=== PATIENT | male | born 1980 | race Caucasian/White ===

== ENCOUNTER 2021-03-11 11:53 | Emergency (ER) | payer SELFPAY ==
--- NOTE | 2021-03-11 16:30 | RAD REPORT ---
EXAM DESCRIPTION: RAD - Hand Left 3 View - 03/11/2021 4:07 pm CLINICAL HISTORY: swelling pain, possible infection COMPARISON: None. FINDINGS: No fracture, dislocation or periosteal reaction noted. No acute bone or joint finding. Sof t tissue swelling is present over the dorsum of the hand and wrist. No air or foreign body identifiab le. IMPRESSION: Soft tissue swelling left hand and wrist with no air or foreign body in the soft tissues .
[2021-03-11 16:38] LABS: Absolute Lymphocytes (CBC) 1.3 K/uL (0.7-4.9); Basophils % 0.3 % (0-1.3); Hematocrit 44.4 % (39.6-49.0); Lymphocytes % 12.1 % (15.3-44.8); MPV 7.3 fL (7.6-11.3); RBC Red Blood Cell Count 5.03 M/uL (4.33-5.43)
[2021-03-11 16:57] LABS: ALT/SGPT 18 U/L (12-78); AST/SGOT 8 U/L (15-37); Albumin 3.6 g/dL (3.4-5.0); Alkaline Phosphatase 95 U/L (45-117); BUN Blood Urea Nitrogen 12 mg/dL (7-18); Bicarbonate 29 mmol/L (21-32); Bilirubin Total 0.6 mg/dL (0.2-1.0); Glucose Level 93 mg/dL (74-106); Sodium Level 137 mmol/L (136-145)
[2021-03-11] MEDS ORDERED: LIDOCAINE 1% MPF 30 ML VIAL ONE (17:44)
[2021-03-11] MEDS ORDERED: VANCOMYCIN/NS 1 gm 1 GM/250 ML BAG IVPB ONE (18:00)
[2021-03-11] MEDS ORDERED: KETOROLAC 30 MG/ML INJ ONE (19:07)
--- NOTE | 2021-03-11 20:00 | ER ---
Nurse's Notes [facility] Name: Barrington Asencio Age: 40 yrs Sex: Male : 1980 Arrival Date: 03/11/2021 Time: 11:57 Bed 11 Private MD: Diagnosis: Cutaneous Abscess of the Left Hand Presentation: 03/11 12:14 Chief complaint: Patient states: Ant bites to L hand for 1 week. 2 abscess to L hand ll1 with surrounding redness and swelling. States he sweats at night. On Bactrim and clindamycin for 2 days. Not any better yet. Coronavirus screen: Client denies travel out of the [place] in the last 14 days. At this time, the client does not indicate any symptoms associated with coronavirus-19. Ebola Screen: Patient denies travel to an Ebola-affected area in the 21 days before illness onset. Initial Sepsis Screen: Does the patient meet any 2 criteria? HR > 90 bpm. No. Patient's initial sepsis screen is negative. Does the patient have a suspected source of infection? Yes: Skin breakdown/wound. Risk Assessment: Do you want to hurt yourself or someone else? Patient reports no desire to harm self or others. Onset of symptoms was March 05, 2021. 12:14 Method Of Arrival: Ambulatory ll1 12:14 Acuity: CELINE 3 ll1 Triage Assessment: 16:29 General: Appears in no apparent distress. Behavior is calm, cooperative, appropriate vg1 for age, quiet. Pain: Complains of pain in dorsal aspect of proximal phalanx of left middle finger and palmar aspect of proximal phalanx of left middle finger Pain radiates to left hand and left arm Pain currently is 8 out of 10 on a pain scale. at worst was 10 out of 10 on a pain scale. level that patient reports is acceptable is 3 out of 10 on a pain scale. Quality of pain is described as aching, sharp, throbbing, Alleviated by medications, rest, repositioning. EENT: No deficits noted. Neuro: No deficits noted. Cardiovascular: No deficits noted. Respiratory: No deficits noted. GI: No deficits noted. : No deficits noted. Derm: Abscess located on dorsal aspect of proximal phalanx of left middle finger is nickel sized, has purulent drainage, is hot to touch, is red, is raised. Historical: - Allergies: 12:16 No Known Allergies; ll1 - PMHx: 12:16 HIV positive; ll1 - PSHx: 12:16 I\T\D; ll1 - Immunization history:: Client reports having NOT received the Covid vaccine. Flu vaccine status is unknown. - Social history:: Smoking status: Patient reports the use of cigarette tobacco products, smokes one pack cigarettes per day. Reported history of juuling and/or vaping. Screenin:28 Abuse screen: Denies threats or abuse. Denies injuries from another. Nutritional vg1 screening: No deficits noted. Tuberculosis screening: No symptoms or risk factors identified. Fall Risk None identified. Assessment: 18:25 Reassessment: No changes from previously documented assessment. Patient and/or family ap3 updated on plan of care and expected duration. Pain level reassessed. Vital Signs: 12:14 BP 138 / 82; Pulse 100; Resp 17; Temp 98.3; Pulse Ox 100% ; Weight 81.19 kg; Height 6 ll1 ft. 0 in. (182.88 cm); Pain 8/10; 19:35 BP 125 / 74; Pulse 88; Resp 14; Temp 98.5(O); Pulse Ox 100% on R/A; Pain 2/10; bc5 12:14 Body Mass Index 24.28 (81.19 kg, 182.88 cm) ll1 ED Course: 11:57 Patient arrived in ED. mr 12:16 Triage completed. ll1 12:17 Arm band placed on. ll1 15:19 Grady Goodman PA is PHCP. [facility] 15:20 Alex Schwartz MD is Attending Physician. jmm 16:07 Hand Left 3 View XRAY In Process Unspecified. EDMS 16:13 Meagan Smallwood, NELL is Primary Nurse. ap3 16:15 Inserted saline lock: 20 gauge in right antecubital area, using aseptic technique. vg1 16:27 Blood Culture Adult (2) Sent. vg1 16:27 Lactate Sent. vg1 16:27 Procalcitonin Sent. vg1 16:27 Wound Culture Sent. vg1 16:27 CMP Sent. vg1 16:27 CBC with Diff Sent. vg1 16:28 Patient has correct armband on for positive identification. vg1 16:28 No provider procedures requiring assistance completed. vg1 19:29 Primary Nurse role handed off by Meagan Smallwood, RN mw2 19:47 Umu Lauren, RN is Primary Nurse. kg 20:15 IV discontinued, intact, bleeding controlled, No redness/swelling at site. sj1 20:16 Wound care: was cleaned with soap and water, dressed with 4X4s, Kerlix, Vaseline gauze. sj1 Administered Medications: 17:45 Drug: Lidocaine (1 %) 20 ml Volume: 20 ml; Route: Infiltration; kg 17:52 Drug: vancoMYCIN 1 grams Route: IVPB; Infused Over: 2 hrs; Site: right antecubital; ap3 20:15 Follow up: IV Status: Completed infusion; IV Intake: 250ml sj1 18:44 Drug: Ketorolac 30 mg Route: IVP; Site: right antecubital; ap3 19:49 Follow up: Response: No adverse reaction kg Intake: 20:15 IV: 250ml; Total: 250ml. sj1 Outcome: 19:59 Discharge ordered by . rufina 20:14 Discharged to home ambulatory. sj1 20:14 Condition: stable 20:14 Discharge instructions given to patient, Instructed on discharge instructions, follow up and referral plans. Demonstrated understanding of instructions, follow-up care, wound care. 20:17 Patient left the ED. sj1 Signatures: Dispatcher [employer] EDMS Grady Goodman PA PA jmm Michelle Carlisle mr Meagan Smallwood, RN RN ap3 Pravin Duffy mw2 Rina Mendoza RN RN vg1 Cricket Moon RN RN 1 Umu Lauren, NELL CAMEJO Nena Ortega, RN RN 5 Loni Diamond, RN RN sj1
--- NOTE | 2021-03-11 20:00 | EDPHYS ---
Physician Documentation [facility] Name: Barrington Asencio Age: 40 yrs Sex: Male : 1980 Arrival Date: 03/11/2021 Time: 11:57 Bed 11 Private MD: ED Physician Alex Schwartz HPI: 03/11 15:32 This 40 yrs old Male presents to ER via Ambulatory with complaints of jmm Abscess, Hand Swelling. 15:32 The patient presents with an abscess of the left hand. Onset: The symptoms/episode jmm began/occurred gradually, 2 day(s) ago. Possible cause(s): fire ant bite. Associated signs and symptoms: Pertinent positives: swelling. This is a 40-year-old male with a history of IV drug use, HIV positive that presents to the emergency department with complaints of left hand swelling that he states is secondary to ant bites. Patient is currently on his second day of oral antibiotics without relief. Patient states pain has increased. Denies fever or chills. Historical: - Allergies: 12:16 No Known Allergies; ll1 - PMHx: 12:16 HIV positive; ll1 - PSHx: 12:16 I\T\D; ll1 - Immunization history:: Client reports having NOT received the Covid vaccine. Flu vaccine status is unknown. - Social history:: Smoking status: Patient reports the use of cigarette tobacco products, smokes one pack cigarettes per day. Reported history of juuling and/or vaping. ROS: 15:32 Constitutional: Negative for fever, chills, and weight loss, Cardiovascular: Negative jmm for chest pain, palpitations, and edema, Respiratory: Negative for shortness of breath, cough, wheezing, and pleuritic chest pain. 15:32 Skin: Positive for swelling. 15:32 All other systems are negative. Exam: 15:32 Constitutional: This is a well developed, well nourished patient who is awake, alert, jmm and in no acute distress. Head/Face: atraumatic. Eyes: EOMI, no conjunctival erythema appreciated ENT: Moist Mucus Membranes Neck: Trachea midline, Supple Chest/axilla: Normal chest wall appearance and motion. Cardiovascular: Regular rate and rhythm. No edema appreciated Respiratory: Normal respirations, no respiratory distress appreciated Abdomen/GI: Non distended, soft Back: Normal ROM 15:32 Skin: 2 fluctuant abscesses noted to the dorsal surface of the left hand, the first is at the first MTP region, the second is at the third MTP region, purulent drainage is appreciated, area is tender to palpation, there is induration. 15:32 Neuro: Orientation: is normal, Mentation: is normal, Memory: is normal. 15:32 Psych: Behavior/mood is pleasant, cooperative. Vital Signs: 12:14 BP 138 / 82; Pulse 100; Resp 17; Temp 98.3; Pulse Ox 100% ; Weight 81.19 kg; Height 6 ll1 ft. 0 in. (182.88 cm); Pain 8/10; 19:35 BP 125 / 74; Pulse 88; Resp 14; Temp 98.5(O); Pulse Ox 100% on R/A; Pain 2/10; bc5 12:14 Body Mass Index 24.28 (81.19 kg, 182.88 cm) ll1 Procedures: 19:14 I \T\ D: Incision and drainage was performed for an abscess of the left left hand Prepped [facility] with Betadine, Anesthetized with 1 ml's 1% Lidocaine. Incised with #11 blade. Drained moderate amount purulent fluid. the patient tolerated the procedure well. MDM: 15:24 Patient medically screened. [facility] 19:14 Data reviewed: vital signs, nurses notes. [facility] 19:58 Counseling: I had a detailed discussion with the patient and/or guardian regarding: the [facility] historical points, exam findings, and any diagnostic results supporting the discharge/admit diagnosis, lab results, radiology results, the need for outpatient follow up, to return to the emergency department if symptoms worsen or persist or if there are any questions or concerns that arise at home. ED course: Purulent drainage appreciated on I\T\D. Patient is advised to follow-up with hand and otherwise given strict return precautions. Patient understood and agree with the care. I do not currently suspect flexor tenosynovitis. Patient is given strict return precautions due to risk factors of HIV and IV drug use.. 03/11 15:25 Order name: CBC with Diff; Complete Time: 16:[address] [facility] 03/11 15:25 Order name: CMP; Complete Time: 17:[address] [facility] 03/11 15:25 Order name: Procalcitonin; Complete Time: 17:[address] [facility] 03/11 15:25 Order name: Lactate; Complete Time: 17:[address] [facility] 03/11 15:25 Order name: Blood Culture Adult (2) [facility] 03/11 15:25 Order name: Saline Lock; Complete Time: 16:[address] [facility] 03/11 15:25 Order name: Hand Left 3 View XRAY; Complete Time: 16:[address] [facility] Administered Medications: 17:45 Drug: Lidocaine (1 %) 20 ml Volume: 20 ml; Route: Infiltration; kg 17:52 Drug: vancoMYCIN 1 grams Route: IVPB; Infused Over: 2 hrs; Site: right antecubital; ap3 20:15 Follow up: IV Status: Completed infusion; IV Intake: 250ml sj1 18:44 Drug: Ketorolac 30 mg Route: IVP; Site: right antecubital; ap3 19:49 Follow up: Response: No adverse reaction kg Disposition Summary: 03/11/21 19:59 Discharge Ordered Location: Home [facility] Condition: Stable [facility] Diagnosis - Cutaneous Abscess of the Left Hand [facility] Followup: [facility] - With: Private Physician - When: 1 - 2 days - Reason: Recheck today's complaints, Continuance of care, Re-evaluation by your physician Discharge Instructions: - Discharge Summary Sheet [facility] - Skin Abscess [facility] Forms: - Medication Reconciliation Form [facility] - Thank You Letter [facility] - Antibiotic Education [facility] - Prescription Opioid Use [facility] Addendum: 03/15/2021 19:04 Co-signature as Attending Physician, Alex Schwartz MD I agree with the assessment and r n plan of care. Attestation: The patient's history, exam findings, diagnostics, and a summary of any interventions or procedures was reviewed in detail with Grady NAIR. 19:05 PA/RESIDENCE HALL DIRECTOR's history reviewed, patient interviewed, and examined. HPI: 40 year old male with r n infection and swelling to hand. No trauma. No sub-q injections. HIV+. 19:05 PA/RESIDENCE HALL DIRECTOR's history reviewed, patient interviewed, and examined. My personal exam of r n patient reveals: + swelling with erythema and warmth to left dorsum hand, no streaking proximally, minimal fluctuance noted. I agree with assessment and care plan and confirm the diagnosis (es) above. Signatures: Dispatcher [employer] EDMS MickaGrady trejo PA PA jmm Nieto, Roman, MD MD rn Cl, Meagan RN RN ap3 Cricket Moon RN RN ll1 Umu Lauren RN RN kg Loni Diamond RN sj1
[2021-03-11 21:49] VITALS: O2SAT 100
[2021-03-11 21:50] VITALS: BP 125/74; TEMP 98.5
== END 2021-03-11 20:17 | disposition home or self-care (01) ==
LOC: ER 11:53
PROC: 0J9K0ZZ Drainage of Left Hand Subcutaneous Tissue and Fascia, Open Approach (ICD-10-PCS; principal; 2021-03-11)
DX: L02.512 Cutaneous abscess of left hand (principal); F17.210 Nicotine dependence, cigarettes, uncomplicated; Z21 Asymptomatic human immunodeficiency virus [HIV] infection status
CPT/HCPCS: 36415; 80053; 83605; 84145; 85025; 87040; 96365; 96366; 96375; 99284; J3370

== ENCOUNTER 2021-03-14 12:45 | Emergency (ER) | payer SELFPAY ==
--- NOTE | 2021-03-14 15:00 | EDPHYS ---
Physician Documentation [facility] Name: Barrington Asencio Age: 40 yrs Sex: Male : 1980 Arrival Date: 03/14/2021 Time: 12:47 Bed 11 Private MD: ED Physician Rasta Torres HPI: 03/14 15:28 This 40 yrs old Male presents to ER via Ambulatory with complaints of Abscess kb Recheck. 15:28 Patient presents to ED for recheck of: abscess. The affected area is on the Left first kb web space and dorsal aspect of proximal phalanx of left middle finger. Previous treatment: The patient was initially treated 3 day(s) ago, the care was rendered at [facility], Treatment type: The patient's original treatment included an I\T\D, Outpatient prescription(s): The patient was given prescription(s) for Bactrim, clindamycin. Progress: The patient reports no change in. The patient has not experienced similar symptoms in the past. The patient has been recently seen at the [facility] Emergency Department, this week, for similar complaints labs were performed. Pt was put on clindamycin and bactrim by [facility]. Came here 3 days ago and had I\T\D done to hand. Went for follow up with clinic today and told to come to the ER because he needed different antibiotics. . Historical: - Allergies: 13:20 No Known Allergies; ap3 - Home Meds: 13:20 clindamycin HCl 300 mg Oral cap 1 cap TID [Active]; Bactrim DS 800-160 mg Oral tab 1 ap3 tab twice a day [Active]; Ibuprofen Oral as needed for pain [Active]; Acetaminophen Oral as needed for pain [Active]; - PMHx: 13:20 HIV positive; ap3 - PSHx: 13:20 I\T\D; ap3 - Immunization history:: Adult Immunizations up to date, Client reports having NOT received the Covid vaccine. - Social history:: Smoking status: Patient reports the use of cigarette tobacco products, smokes one pack cigarettes per day. Patient/guardian denies using alcohol, stopped using illegal drugs three weeks ago . ROS: 15:27 Constitutional: Negative for fever, chills, and weight loss. kb 15:27 Skin: Positive for abscess, of the Left first web space and dorsal aspect of proximal phalanx of left middle finger. 15:27 All other systems are negative. Exam: 15:27 Constitutional: This is a well developed, well nourished patient who is awake, alert, kb and in no acute distress. Head/Face: Normocephalic, atraumatic. ENT: Moist Mucous membranes Respiratory: Respirations even and unlabored. No increased work of breathing, no retractions or nasal flaring. MS/ Extremity: Pulses equal, no cyanosis. Neurovascular intact. Full, normal range of motion. Neuro: Awake and alert, GCS 15, oriented to person, place, time, and situation. Moves all extremities. Normal gait. Psych: Awake, alert, with orientation to person, place and time. Behavior, mood, and affect are within normal limits. 15:27 Skin: Wound recheck: Abscess: the wound has not changed, continued discharge, continued erythema, continued pain, continued surrounding cellulitis, the packing is not in place. Vital Signs: 13:18 BP 127 / 86; Pulse 90; Resp 19; Temp 98.4; Pulse Ox 100% ; Weight 79.38 kg; Height 6 ap3 ft. (182.88 cm); Pain 0/10; 13:18 Body Mass Index 23.73 (79.38 kg, 182.88 cm) ap3 MDM: 13:27 Patient medically screened. kb 15:24 Data reviewed: vital signs, nurses notes. Data interpreted: Pulse oximetry: on room air kb is 100 %. Interpretation: normal. Counseling: I had a detailed discussion with the patient and/or guardian regarding: the historical points, exam findings, and any diagnostic results supporting the discharge/admit diagnosis, the need for outpatient follow up, a family practitioner, to return to the emergency department if symptoms worsen or persist or if there are any questions or concerns that arise at home. ED course: Received wound culture report from Tanesha modi. Sensitive to rifampin and vancomycin. Discussed options with pt. Pt will take rifampin and return for IV antibiotics if symptoms worsen. Administered Medications: No medications were administered Disposition Summary: 03/14/21 14:59 Discharge Ordered Location: Home kb Condition: Stable kb Diagnosis - Cutaneous abscess of left hand kb Followup: kb - With: Emergency Department - When: As needed - Reason: Worsening of condition Followup: kb - With: Private Physician - When: 2 - 3 days - Reason: Recheck today's complaints, Continuance of care, Re-evaluation by your physician Discharge Instructions: - Discharge Summary Sheet kb - Skin Abscess, [id number] kb - Incision and Drainage, Care After kb Forms: - Medication Reconciliation Form kb - Thank You Letter kb - Antibiotic Education kb - Prescription Opioid Use kb Prescriptions: - rifampin 300 mg Oral capsule - take 1 capsule by ORAL route every 8 hours for 7 days with water, 1 hour before kb or 2 hours after a meal; 21 capsule; Refills: 0, Product Selection Permitted Addendum: 03/15/2021 17:02 Co-signature as Attending Physician, Rasta Torres MD I agree with the assessment and k plan of care. Signatures: Chhaya Khan, REAL ESTATE INVESTOR-C REAL ESTATE INVESTOR-Ckb Rasta Torres MD MD [facility] Meagan Smallwood RN RN ap3
--- NOTE | 2021-03-14 15:00 | ER ---
Nurse's Notes [facility] Name: Barrington Asencio Age: 40 yrs Sex: Male : 1980 Arrival Date: 03/14/2021 Time: 12:47 Bed 11 Private MD: Diagnosis: Cutaneous abscess of left hand Presentation: 03/14 13:18 Chief complaint: Patient states: he was seen here Wednesday, and followed up with the ap3 clinic yesterday. The clinic informed the patient his abscess contains MRSA and needed to come here to get his antibiotics changed. Coronavirus screen: At this time, the client does not indicate any symptoms associated with coronavirus-19. Ebola Screen: No symptoms or risks identified at this time. Initial Sepsis Screen: Does the patient meet any 2 criteria? No. Patient's initial sepsis screen is negative. Does the patient have a suspected source of infection? Yes: Skin breakdown/wound. Risk Assessment: Do you want to hurt yourself or someone else? Patient reports no desire to harm self or others. Onset of symptoms was February 25, 2021. 13:18 Method Of Arrival: Ambulatory ap3 13:18 Acuity: CELINE 4 ap3 Triage Assessment: 13:23 General: Appears in no apparent distress. comfortable, Behavior is calm, cooperative, ap3 appropriate for age. Pain: Denies pain. Neuro: Level of Consciousness is awake, alert, obeys commands, Oriented to person, place, time, situation, Appropriate for age Moves all extremities. Gait is steady, Speech is normal. Cardiovascular: Capillary refill < 3 seconds Patient's skin is warm and dry. Respiratory: Airway is patent Respiratory effort is even, unlabored, Respiratory pattern is regular, symmetrical. Derm: Wound noted dorsal aspect of proximal phalanx of left middle finger and Left first web space. Historical: - Allergies: 13:20 No Known Allergies; ap3 - Home Meds: 13:20 clindamycin HCl 300 mg Oral cap 1 cap TID [Active]; Bactrim DS 800-160 mg Oral tab 1 ap3 tab twice a day [Active]; Ibuprofen Oral as needed for pain [Active]; Acetaminophen Oral as needed for pain [Active]; - PMHx: 13:20 HIV positive; ap3 - PSHx: 13:20 I\T\D; ap3 - Immunization history:: Adult Immunizations up to date, Client reports having NOT received the Covid vaccine. - Social history:: Smoking status: Patient reports the use of cigarette tobacco products, smokes one pack cigarettes per day. Patient/guardian denies using alcohol, stopped using illegal drugs three weeks ago . Screenin:23 Abuse screen: Denies threats or abuse. Nutritional screening: No deficits noted. ap3 Tuberculosis screening: No symptoms or risk factors identified. Fall Risk None identified. Assessment: 15:44 Reassessment: Patient appears in no apparent distress at this time. Patient and/or ss family updated on plan of care and expected duration. Pain level reassessed. Patient is alert, oriented x 3, equal unlabored respirations, skin warm/dry/pink. dressing placed to affected area. Pt discharged home with new antibiotic. Vital Signs: 13:18 BP 127 / 86; Pulse 90; Resp 19; Temp 98.4; Pulse Ox 100% ; Weight 79.38 kg; Height 6 ap3 ft. (182.88 cm); Pain 0/10; 13:18 Body Mass Index 23.73 (79.38 kg, 182.88 cm) ap3 ED Course: 12:47 Patient arrived in ED. mr 13:20 Triage completed. ap3 13:24 Patient has correct armband on for positive identification. Call light in reach. Pulse ap3 ox on. NIBP on. Door closed. Noise minimized. 13:25 Meagan Smallwood, NELL is Primary Nurse. ap3 13:25 Arm band placed on right wrist. ap3 13:26 Chhaya Khan FNP-C [facility]. kb 13:26 Rasta Torres MD is Attending Physician. kb 15:44 No provider procedures requiring assistance completed. Patient did not have IV access ss during this emergency room visit. Wound care: to cellulitis located on dorsal aspect of proximal phalanx of left middle finger was cleaned with soap and water, Patient tolerated well. Administered Medications: No medications were administered Outcome: 14:59 Discharge ordered by . kb 15:44 Discharged to home ambulatory. ss 15:44 Condition: good 15:44 Discharge instructions given to patient, Instructed on discharge instructions, follow up and referral plans. wound care, Demonstrated understanding of instructions, follow-up care, Prescriptions given X 1. 15:47 Patient left the ED. ss Signatures: Chhaya Khan JOSEPH-C PASSENGER CAR UPHOLSTERER APPRENTICE-Michelle Cole mr Louise Goodman, RN RN ss Meagan Smallwood RN RN ap3
[2021-03-14 16:47] VITALS: BP 127/86; TEMP 98.4; O2SAT 100
== END 2021-03-14 15:47 | disposition home or self-care (01) ==
LOC: ER 12:45
DX: L02.512 Cutaneous abscess of left hand (principal); F17.210 Nicotine dependence, cigarettes, uncomplicated; Z21 Asymptomatic human immunodeficiency virus [HIV] infection status
CPT/HCPCS: 99283